=== PATIENT | female | born 1995 | race Caucasian/White ===

== ENCOUNTER 2022-06-22 13:13 | Emergency (ER) | payer SELFPAY ==
[2022-06-22 15:05] VITALS: BP 102/63; PULSE 100; RESP 18; TEMP 99.7; BMI 29.7
== END 2022-06-22 16:12 | disposition home or self-care (01) ==
LOC: JER 13:13
DX: J09.X2 Influenza due to identified novel influenza A virus with other respiratory manifestations (principal); R51.9 Headache, unspecified; R05.1 Acute cough
CPT/HCPCS: 0241U-QW; 99283-25

== ENCOUNTER 2024-08-18 12:47 | Emergency (ER) | payer OTHER ==
[2024-08-18 12:56] VITALS: RESP 18; BMI 34.0
[2024-08-18] MEDS ORDERED: ACETAMINOPHEN INJECTION 100 ML ONE (13:56)
[2024-08-18] MEDS ORDERED: FAMOTIDINE 20 MG/50 ML IVPB 20 MG/50 ML MG IVPB ONE (13:57)
[2024-08-18] MEDS ORDERED: LIDOCAINE 4% PATCH TP ONE (13:57)
[2024-08-18] MEDS ORDERED: MAG HYDROX/AL HYDROX/SIMETH 30 ML UNIT-DOSE CUP ONE (13:57)
[2024-08-18] MEDS: FAMOTIDINE 20 MG/50 ML IVPB 20 MG/50 ML MG IVPB ONE (14:04)
[2024-08-18] MEDS: MAG HYDROX/AL HYDROX/SIMETH 30 ML UNIT-DOSE CUP PO ONE (14:04)
[2024-08-18] MEDS: ACETAMINOPHEN 1000 MG/100 ML BAG IVPB ONE (14:04)
[2024-08-18] MEDS: LIDOCAINE 4% PATCH TP ONE (14:04)
[2024-08-18 14:09] LABS: BASO % 0.3 % (0-2.0); EOS % 2.7 % (0-4.5); HEMATOCRIT 41.9 % (32.4-45.2); HEMOGLOBIN 13.7 GM/dL (10.7-15.3); LYMPH % 27.8 % (8-40); MCH 29.2 pg (25.7-33.7); MCHC 32.6 g/dl (32.0-36.0); MEAN CELL VOLUME 89.6 fl (80-96); MEAN PLT VOLUME 8.1 fl (7.5-11.1); MONO % 8.9 % (3.8-10.2); NEUT % 60.3 % (42.8-82.8); PLATELET COUNT 333 10^3/uL (134-434); RBC 4.67 M/mm3 (3.60-5.2); RDW 12.9 % (11.6-15.6); WHITE BLOOD COUNT 7.9 K/mm3 (4.0-10.0)
[2024-08-18 14:27] LABS: POTASSIUM 4.4 mmol/L (3.5-5.1)
[2024-08-18 14:28] LABS: CALCIUM 9.4 mg/dL (8.5-10.1)
[2024-08-18 14:30] LABS: ALBUMIN 3.6 g/dl (3.4-5.0); BLOOD UREA NITROGEN 11.2 mg/dL (7-18); MAGNESIUM 2.1 mg/dL (1.8-2.4)
[2024-08-18 14:32] LABS: CREATININE 0.6 mg/dL (0.55-1.3)
[2024-08-18 14:33] LABS: BILIRUBIN,TOTAL 0.3 mg/dL (0.2-1); TOT PROT 7.4 g/dl (6.4-8.2)
[2024-08-18 15:24] LABS: HIV INTERPRETATION NEGATIVE (NEGATIVE)
[2024-08-18] MEDS ORDERED: KETOROLAC TROMETHAMINE 15 MG/ML VIAL ONE (15:55)
[2024-08-18] MEDS: KETOROLAC TROMETHAMINE 15 MG/ML VIAL IVPUSH ONE (16:12)
[2024-08-18 17:35] VITALS: BP 111/79; PULSE 81; TEMP 98.5
[2024-08-18] MEDS ORDERED: LIDOCAINE PATCH REMOVAL MC ONE (22:00)
== END 2024-08-18 17:35 | disposition home or self-care (01) ==
LOC: JER 12:47
PROC: 3E033GC Introduction of Other Therapeutic Substance into Peripheral Vein, Percutaneous Approach (ICD-10-PCS; principal; 2024-08-18)
PROC: 3E033NZ Introduction of Analgesics, Hypnotics, Sedatives into Peripheral Vein, Percutaneous Approach (ICD-10-PCS; 2024-08-18)
PROC: 3E0333Z Introduction of Anti-inflammatory into Peripheral Vein, Percutaneous Approach (ICD-10-PCS; 2024-08-18)
DX: R07.2 Precordial pain (principal); R10.13 Epigastric pain; R50.9 Fever, unspecified; M54.6 Pain in thoracic spine; Z20.822 Contact with and (suspected) exposure to COVID-19
CPT/HCPCS: 0241U-QW; 36415; 71046-TC-FY; 80053; 83690; 83735; 84484; 84703; 85025; 85379; 86803; 87389; 93005; 93010; 99285-25; J0131